=== PATIENT | female | born 1930 | race Caucasian/White ===

== ENCOUNTER → 2016-11-08 | Outpatient (CLI) | payer MEDICARE ==
[~2016-11-08] MED LIST: ASPIRIN325 MG PO; ATENOLOL25 MG PO; ATENOLOL50 MG PO; CALTRATE 600600 MG PO; LATANOPROST 2.2.5 ML OP; MOTRIN600 MG PO; OCUVITE1 TA1 PO; PRAVASTATIN SOD20 MG PO; VITAMIN D1000 IU; XALATAN 2.5 ML2.5 ML OP
[2016-11-08 08:45] LABS: BASO % 0.5 % (0.0-1.0); EOS # 0.2 10*3/uL (0.0-0.4); EOS % 3.1 % (1.0-4.0); HEMATOCRIT 37.3 % (37.0-47.0); HEMOGLOBIN 11.7 g/dl (12.0-16.0); IG # 0.1 10*3/uL (0.0-0.1); LYMPH # 1.6 10*3/uL (1.3-4.4); LYMPH % 27.7 % (27.0-41.0); MEAN CELL VOLUME 90.8 fl (81.0-99.0); MEAN CORPUSCULAR HGB 28.5 pg (27.0-31.0); MEAN CORPUSCULAR HGB CONC 31.4 g/dl (33.0-37.0); MEAN PLATELET VOLUME 10.9 fl (9.6-12.3); MONO # 0.4 10*3/uL (0.1-1.0); MONO % 7.1 % (3.0-9.0); NEUT # 3.6 10*3/uL (2.3-7.9); NEUT % 60.8 % (47.0-73.0); PLATELET COUNT AUTOMATED 173 10*3/uL (130-400); RED BLOOD COUNT 4.11 10*6/uL (4.10-5.10); RED CELL DISTRI WIDTH 15.3 % (0-14.5); WHITE BLOOD COUNT 5.9 10*3/uL (4.8-10.8)
[2016-11-08 09:21] LABS: ALBUMIN 3.1 gm/dl (3.1-4.5); ALKALINE PHOSPHATASE 78 U/L (45-117); BILIRUBIN, TOTAL 0.7 mg/dl (0.2-1.0); BUN 17 mg/dl (7-24); CARBON DIOXIDE 26 mmol/L (21-32); CHLORIDE 111 mmol/L (98-107); CHOLESTEROL 153 mg/dL (<200); EST GLOM FILT AFRICAN AMERICAN > 60 ml/min; GLUCOSE 96 mg/dL (65-99); HDL CHOLESTEROL 39 mg/dl (40-60); LDL CHOLESTEROL 92 mg/dL (9-159); POTASSIUM 3.8 mmol/L (3.5-5.1); SGOT/AST 16 IU/L (3-35); SGPT/ALT 14 U/L (12-78); SODIUM 146 mmol/L (136-145); TRIGLYCERIDES 109 mg/dl (<150); VLDL CHOLESTEROL 22 mg/dL (6-40)
== END | disposition home or self-care (01) ==
LOC: LAB 08:19
PROVIDERS: Internal Medicine
DX: I10 Essential (primary) hypertension (principal); E78.00 Pure hypercholesterolemia, unspecified

== ENCOUNTER 2017-03-23 14:46 | Inpatient (IN) | payer MEDICARE ==
[~2017-03-23] VITALS: Ht 157.4 cm; Wt 60.4 kg
[~2017-03-23 14:46] MED LIST changes: -XALATAN 2.5 ML2.5 ML OP; +XALATAN 2.5 ML2.5 ML OU
[2017-03-23 14:57] VITALS: BP 169/59
[2017-03-23 15:18] LABS: BASO % 0.3 % (0.0-1.0); EOS # 0.1 10*3/uL (0.0-0.4); EOS % 0.7 % (1.0-4.0); HEMATOCRIT 36.7 % (37.0-47.0); HEMOGLOBIN 11.8 g/dl (12.0-16.0); LYMPH # 1.4 10*3/uL (1.3-4.4); LYMPH % 10.3 % (27.0-41.0); MEAN CORPUSCULAR HGB 28.3 pg (27.0-31.0); MEAN CORPUSCULAR HGB CONC 32.2 g/dl (33.0-37.0); MEAN PLATELET VOLUME 11.4 fl (9.6-12.3); MONO # 0.5 10*3/uL (0.1-1.0); MONO % 3.9 % (3.0-9.0); NEUT # 11.4 10*3/uL (2.3-7.9); NEUT % 83.2 % (47.0-73.0); PLATELET COUNT AUTOMATED 146 10*3/uL (130-400); RED BLOOD COUNT 4.17 10*6/uL (4.10-5.10); RED CELL DISTRI WIDTH 14.9 % (0-14.5); WHITE BLOOD COUNT 13.7 10*3/uL (4.8-10.8)
[2017-03-23 15:30] LABS: BUN 21 mg/dl (7-24); CHLORIDE 108 mmol/L (98-107); CREATININE 0.87 mg/dL (0.55-1.02); POTASSIUM 4.3 mmol/L (3.5-5.1); SODIUM 139 mmol/L (136-145)
[2017-03-23 15:50] LABS: ACT PARTIAL THROMBO TIME 25.6 SECONDS (20.8-31.5); INTERNATIONAL NORM RATIO 1.1 (2.0-3.5)
[2017-03-23 17:39] VITALS: BP 158/44
[2017-03-23 18:00] VITALS: BP 158/44
[2017-03-23] MEDS ORDERED: NORVASC5 MG PO (19:37)
[2017-03-23] MEDS ORDERED: ELIQUIS5 M1 PO (19:37)
[2017-03-23] MEDS ORDERED: PRESERVISION A1 EAC2 PO (19:39)
[2017-03-23] MEDS ORDERED: ADVIL200 M1 PO (19:40)
[2017-03-23] MEDS ORDERED: TYLENOL EXTRA500 M2 PO (19:41)
[2017-03-23 20:00] VITALS: BP 141/57
[2017-03-23] MEDS ORDERED: TENORMIN50 MG PO (20:04)
[2017-03-23 23:29] LABS: BILIRUBIN NEGATIVE (NEGATIVE); BLOOD TRACE-INTACT (NEGATIVE); CLARITY SL CLOUDY (CLEAR); COLOR YELLOW (YELLOW); GLUCOSE NEGATIVE (NEGATIVE); KETONE TRACE (NEGATIVE); LEUKO ESTERASE 3+ (NEGATIVE); NITRITE POSITIVE (NEGATIVE); PH 6.5 (5.0-9.0); SPECIFIC GRAVITY 1.015 (1.005-1.030); UROBILINOGEN 0.2 E.U./dl (0.2-1.0)
[2017-03-23 23:35] LABS: BACTERIA 3+
[2017-03-23 23:39] LABS: WBC TNTC wbc/hpf (0-5)
[2017-03-24] VITALS: BP 138/51
[2017-03-24 05:40] LABS: BUN 23 mg/dl (7-24); CHLORIDE 108 mmol/L (98-107); CREATININE 0.81 mg/dL (0.55-1.02); SODIUM 140 mmol/L (136-145)
[2017-03-24 05:45] LABS: THYROID STIM HORMONE (HS) 0.912 uIU/ml (0.358-4.75)
[2017-03-24 05:56] LABS: BASO % 0.5 % (0.0-1.0); EOS % 0.5 % (1.0-4.0); HEMATOCRIT 31.3 % (37.0-47.0); HEMOGLOBIN 10.2 g/dl (12.0-16.0); LYMPH # 1.2 10*3/uL (1.3-4.4); LYMPH % 18.1 % (27.0-41.0); MEAN CELL VOLUME 88.4 fl (81.0-99.0); MEAN CORPUSCULAR HGB 28.8 pg (27.0-31.0); MEAN CORPUSCULAR HGB CONC 32.6 g/dl (33.0-37.0); MEAN PLATELET VOLUME 12.5 fl (9.6-12.3); MONO # 0.4 10*3/uL (0.1-1.0); MONO % 6.6 % (3.0-9.0); NEUT # 4.7 10*3/uL (2.3-7.9); NEUT % 73.5 % (47.0-73.0); PLATELET COUNT AUTOMATED 131 10*3/uL (130-400); RED BLOOD COUNT 3.54 10*6/uL (4.10-5.10); WHITE BLOOD COUNT 6.4 10*3/uL (4.8-10.8)
[2017-03-24 07:50] VITALS: BP 160/78
[2017-03-24 09:02] LABS: VITAMIN D, 25-HYDROXY 36.6 ng/mL (30-100)
[2017-03-24 12:00] VITALS: BP 150/53
[2017-03-24 16:00] VITALS: BP 138/50
[2017-03-24 20:00] VITALS: BP 158/61
[2017-03-25] VITALS: BP 108/68
[2017-03-25 08:00] VITALS: BP 140/54
[2017-03-25 12:00] VITALS: BP 120/78
[2017-03-25 16:00] VITALS: BP 137/50
[2017-03-25 20:00] VITALS: BP 118/60
[2017-03-26] VITALS: BP 116/58
[2017-03-26 08:00] VITALS: BP 134/48
[2017-03-26] MEDS ORDERED: DOXYCYCLINE100 M3 PO (08:59)
== END 2017-03-26 11:55 | disposition other institution (70) | DRG 552 ==
LOC: ED 14:46 → EDHOLD 16:04 → 4E 16:04
PROVIDERS: Emergency Medicine; Internal Medicine; ADMIT Internal Medicine
DX: S32.10XA Unspecified fracture of sacrum, initial encounter for closed fracture (principal); S32.502A Unspecified fracture of left pubis, initial encounter for closed fracture; E87.8 Other disorders of electrolyte and fluid balance, not elsewhere classified; I48.91 Unspecified atrial fibrillation; S32.302A Unspecified fracture of left ilium, initial encounter for closed fracture; N39.0 Urinary tract infection, site not specified; D64.9 Anemia, unspecified; E78.5 Hyperlipidemia, unspecified; H40.9 Unspecified glaucoma; I10 Essential (primary) hypertension; R73.9 Hyperglycemia, unspecified; Z60.2 Problems related to living alone; Z88.2 Allergy status to sulfonamides; Z86.73 Personal history of transient ischemic attack (TIA), and cerebral infarction without residual deficits; Z98.41 Cataract extraction status, right eye; Z82.49 Family history of ischemic heart disease and other diseases of the circulatory system; Z84.89 Family history of other specified conditions; Z79.899 Other long term (current) drug therapy; W01.0XXA Fall on same level from slipping, tripping and stumbling without subsequent striking against object, initial encounter; Y93.89 Activity, other specified; Y92.090 Kitchen in other non-institutional residence as the place of occurrence of the external cause; Y99.8 Other external cause status

== ENCOUNTER → 2017-04-18 | Outpatient (CLI) | payer MEDICARE ==
[~2017-04-18] MED LIST changes: +ADVIL200 M1 PO; +DOXYCYCLINE100 M3 PO; +ELIQUIS5 M1 PO; +NORVASC5 MG PO; +PRESERVISION A1 EAC2 PO; +TENORMIN50 MG PO; +TYLENOL EXTRA500 M2 PO
== END | disposition home or self-care (01) ==
LOC: ORTHO 02:22
DX: S32.502D Unspecified fracture of left pubis, subsequent encounter for fracture with routine healing (principal); X58.XXXD Exposure to other specified factors, subsequent encounter

== ENCOUNTER → 2017-08-12 | Outpatient (CLI) | payer MEDICARE | END | disposition home or self-care (01) | LOC: RAD 09:35 | DX: J90 Pleural effusion, not elsewhere classified (principal); I51.7 Cardiomegaly; M40.294 Other kyphosis, thoracic region; I10 Essential (primary) hypertension ==

== ENCOUNTER → 2017-08-16 | Outpatient (CLI) | payer MEDICARE | END | disposition home or self-care (01) | LOC: CARD 08-12 09:34 | DX: I35.0 Nonrheumatic aortic (valve) stenosis (principal) ==

== ENCOUNTER → 2017-08-24 | Outpatient (CLI) | payer MEDICARE | END | disposition home or self-care (01) | LOC: RAD 11:01 | DX: R06.09 Other forms of dyspnea (principal) ==

== ENCOUNTER 2019-01-31 09:57 | Inpatient (IN) | payer MEDICARE ==
[~2019-01-31] VITALS: Ht 157.5 cm; Wt 61.4 kg
[2019-01-31] VITALS (20 sets, daily range): BP systolic 120–182; BP diastolic 59–108
[~2019-01-31 09:57] MED LIST changes: +AMINOPHYLLIN200 MG PO; +DILTIAZEM HCL60 MG PO; +ELIQUIS2.5 M1 PO; +LISINOPRIL2.5 MG PO; +METOPROLOL SUCC50 M1 PO
[2019-01-31 11:56] LABS: BASO % 0.5 % (0.0-1.0); HEMATOCRIT 35.9 % (37.0-47.0); HEMOGLOBIN 10.7 g/dl (12.0-16.0); LYMPH # 0.8 10*3/uL (1.3-4.4); LYMPH % 12.6 % (27.0-41.0); MEAN CELL VOLUME 91.8 fl (81.0-99.0); MEAN CORPUSCULAR HGB 27.4 pg (27.0-31.0); MEAN CORPUSCULAR HGB CONC 29.8 g/dl (33.0-37.0); MEAN PLATELET VOLUME 12.1 fl (9.6-12.3); MONO # 0.4 10*3/uL (0.1-1.0); MONO % 6.4 % (3.0-9.0); NEUT # 4.8 10*3/uL (2.3-7.9); NEUT % 79.3 % (47.0-73.0); PLATELET COUNT AUTOMATED 170 10*3/uL (130-400); RED BLOOD COUNT 3.91 10*6/uL (4.10-5.10); RED CELL DISTRI WIDTH 17.7 % (0-14.5); WHITE BLOOD COUNT 6.1 10*3/uL (4.8-10.8)
[2019-01-31 12:13] LABS: ALBUMIN 3.5 gm/dl (3.1-4.5); BUN 20 mg/dl (7-24); CHLORIDE 108 mmol/L (98-107); CREATININE 0.93 mg/dL (0.55-1.02); POTASSIUM 3.4 mmol/L (3.5-5.1); SGOT/AST 42 IU/L (3-35); SGPT/ALT 26 U/L (12-78); SODIUM 138 mmol/L (136-145); TOTAL PROTEIN 7.8 gm/dL (6.4-8.2)
[2019-01-31 12:14] LABS: ALKALINE PHOSPHATASE 75 U/L (45-117)
--- NOTE | 2019-01-31 13:07 | NUR ---
CARDIZEM DRIP INCREASED TO 10MG/HR. PT PLACED ON BEDPAN FOR URINE SPECIMAN.
--- NOTE | 2019-01-31 13:20 | NUR ---
PT TAKEN OFF BEDPAN, SHEETS AND NEW GOWN PLACED ON PATIENT. URINE SPECIMAN SENT. PT VOICES NO COMPLAINTS.
[2019-01-31 13:32] LABS: BILIRUBIN 1+ (NEGATIVE); BLOOD TRACE-LYSED (NEGATIVE); CLARITY SL CLOUDY (CLEAR); COLOR YELLOW (YELLOW); GLUCOSE NEGATIVE (NEGATIVE); KETONE 1+ (NEGATIVE); LEUKO ESTERASE NEGATIVE (NEGATIVE); NITRITE NEGATIVE (NEGATIVE); PH 6.5 (5.0-9.0)
[2019-01-31 13:49] LABS: BACTERIA 1+; EPITHELIAL CELLS 21-30
[2019-01-31 13:50] LABS: RBC 0-2 rbc/hpf (0-2)
--- NOTE | 2019-01-31 14:14 | NUR ---
CARDIZEM INCREASED TO 15ML/HR.
--- NOTE | 2019-01-31 14:50 | NUR ---
DR HOOVER AWARE OF PT'S HEART RATE AND STATES TO LEAVE CARDIZEM AT 15MG/HR.
--- NOTE | 2019-01-31 15:45 | NUR ---
PT WITH LACTIC @ 3.0. DR HOOVER AWARE.
--- NOTE | 2019-01-31 16:08 | NUR ---
A 88, admitted to 4E, under the services of DON Ayala DO with a diagnosis of AFIB RVR,PNA,SEPSIS. Chief complaint is AFIB RVR.. Patient arrived via bed from ER. Monitor applied. Initial assessment completed. Vital signs taken and recorded. DON AYALA DO notified of admission to the unit. Orders received. See assessment for past medical history, medications and allergies. Patient oriented to unit. Clothing/patient valuable form completed. YOLANDA MORENO
[2019-01-31 16:44] LABS: CREATININE 0.85 mg/dL (0.55-1.02)
--- NOTE | 2019-01-31 16:45 | NUR ---
PT. WAS INSTRUCTED ON I/S. ATTEMPTED THREE TIME WITH PT. PT. IS UNABLE TO DO I/S. RN NOTIFIED.
--- NOTE | 2019-01-31 16:46 | NUR ---
INFORMED THAT HOME MEDICATIONS ARE VERIFIED.
--- NOTE | 2019-01-31 16:53 | NUR ---
INFORMED OF TROP LEVEL OF 0.083. STATED OK.
--- NOTE | 2019-01-31 17:08 | NUR ---
HOME MEDICATIONS ARE LOCATED IN PHARMACY.
--- NOTE | 2019-01-31 17:19 | NUR ---
PLATFORM MAN. ANSWERING SERVICE NOTIFIED AT THIS TIME REGARDING CONSULT.
--- NOTE | 2019-01-31 17:23 | NUR ---
NOTIFIED REGARDING CRITICAL LACTIC ACID. NO NEW ORDERS AT THIS TIME.
--- NOTE | 2019-01-31 20:09 | NUR ---
INFORMED OF CH LA=2.4 AND CH TROP=0.088. STATED OK.
--- NOTE | 2019-01-31 22:35 | NUR ---
MADE AWARE OF H TROP LEVEL OF 0.076. STATED OK
[2019-02-01] VITALS (9 sets, daily range): BP systolic 119–148; BP diastolic 55–86
--- NOTE | 2019-02-01 01:00 | NUR ---
PT ASLEEP AT THIS TIME. CARDIZEM DRIP RUNNING INTO LEFT HAND IV WITHOUT DIFFICULTY. NO CONCERNS NOTED. RESPIRATIONS EASY. CALL LIGHT IN REACH.
--- NOTE | 2019-02-01 02:00 | NUR ---
CARDIZEM DRIP DECREASED TO 10ML PER HOUR. VERIFIED WITH DELMY CEJA.
--- NOTE | 2019-02-01 03:00 | NUR ---
PT ASLEEP AT THIS TIME. RESPIRATIONS EASY. CALL LIGHT IN REACH.
--- NOTE | 2019-02-01 04:00 | NUR ---
PT HR 60'S PER CM. CARDIZEM DRIP LOWERED TO 5 ML AN HOUR. VERIFIED WITH DELMY CEJA.
--- NOTE | 2019-02-01 05:09 | NUR ---
DR. CARCAMO NOTIFIED OF HR IN 90'S LOW 100'S. INRSTRUCTED TO LEAVE CARDIZEM DRIP AT 5ML/HR AND WAIT AN HOUR AN ASSESS EFFECTIVENESS OF PO LOPRESSOR AND CARDIZEM. WILL CALL BACK WITH RESULTS IN ONE HOUR.
[2019-02-01 06:53] LABS: BASO % 0.5 % (0.0-1.0); EOS % 0.2 % (1.0-4.0); HEMATOCRIT 30.7 % (37.0-47.0); HEMOGLOBIN 9.2 g/dl (12.0-16.0); LYMPH # 0.9 10*3/uL (1.3-4.4); LYMPH % 14.5 % (27.0-41.0); MEAN CELL VOLUME 90.6 fl (81.0-99.0); MEAN CORPUSCULAR HGB 27.1 pg (27.0-31.0); MEAN PLATELET VOLUME 11.8 fl (9.6-12.3); MONO # 0.4 10*3/uL (0.1-1.0); MONO % 6.9 % (3.0-9.0); NEUT # 4.5 10*3/uL (2.3-7.9); NEUT % 76.7 % (47.0-73.0); PLATELET COUNT AUTOMATED 159 10*3/uL (130-400); RED BLOOD COUNT 3.39 10*6/uL (4.10-5.10); RED CELL DISTRI WIDTH 17.7 % (0-14.5); WHITE BLOOD COUNT 5.9 10*3/uL (4.8-10.8)
[2019-02-01 07:08] LABS: ALBUMIN 2.9 gm/dl (3.1-4.5); BUN 26 mg/dl (7-24); CHLORIDE 112 mmol/L (98-107); CREATININE 0.92 mg/dL (0.55-1.02); PHOSPHOROUS 2.7 mg/dL (2.5-4.9); POTASSIUM 3.4 mmol/L (3.5-5.1); SGOT/AST 38 IU/L (3-35); SGPT/ALT 25 U/L (12-78); SODIUM 141 mmol/L (136-145); TOTAL PROTEIN 6.5 gm/dL (6.4-8.2)
[2019-02-01 07:10] LABS: ALKALINE PHOSPHATASE 60 U/L (45-117)
[2019-02-01 07:23] LABS: INTERNATIONAL NORM RATIO 1.3 (2.0-3.5)
--- NOTE | 2019-02-01 08:46 | NUR ---
CARDIZEM GTT DISCONTINUED AT THIS TIME PER ORDER.
--- NOTE | 2019-02-01 09:19 | NUR ---
IV DIG GIVEN SLOWLY PER ORDER. HR 112. WILL CONTINUE TO MONITOR HR. VSS.
--- NOTE | 2019-02-01 09:31 | NUR ---
LULA REEVES CALLED AT THIS TIME REGARDING PALLIATIVE CARE CONSULT.
--- NOTE | 2019-02-01 10:27 | NUR ---
PATIENT REMAINS A-FIB. HR 80-90'S. WILL CONTINUE TO MONITOR.
--- NOTE | 2019-02-01 11:00 | NUR ---
PHYSICAL THERAPY Physical therapy evaluation completed. Full details and evaluation to follow. Low complexity skilled PT evaluation performed ([id number]). PT will work on strength, transfers, gait, bed mobility, and safety per POC. Recommend SNF upon discharge. Thank you, Debbi Johnson,SPT Terri Swann,PT,DPT
--- NOTE | 2019-02-01 11:42 | NUR ---
NOTIFIED REGARDING HR DIPPING INTO THE 50'S. PATIENT STILL IN A-FIB. PT ASYMPTOMATIC. BP STABLE. WILL CONTINUE TO MONITOR HR. CALL LIGHT WITHIN REACH.
--- NOTE | 2019-02-01 11:46 | NUR ---
TANNER CALLED AT THIS TIME REGARDING 'S CONSULT.
--- NOTE | 2019-02-01 12:36 | NUR ---
SPEECH PATHOLOGY Nursing screen completed. There are no reports of acute communication or swallowing problems. Speech services do not appear warranted however this dept. will be available should future needs arise. JONI THOMAS MSCCC-PROCESS PROJECT ENGINEER
--- NOTE | 2019-02-01 13:30 | NUR ---
Lianna was evaluated by occupational therapy this date. She has a history of recent frequent falls and inability to care for herself at home. Patient requries increased assist with ADL's and functional transfers secondary to decreased balance, decreased endurance, and decreased strength. Continued occuaptional therapy is recommended in a SNF when patient is discharged. Candi Gambino
--- NOTE | 2019-02-01 14:07 | NUR ---
SPOKE WITH REGARDING HR DIPPING INTO THE 40'S BUT STAYING IN THE 50'S CURRENTLY. PT ASYMPTOMATIC. SCHEDULED IV DIGOXIN TO BE HELD PER . WILL CONTINUE TO MONITOR. BP STABLE.
--- NOTE | 2019-02-01 15:07 | NUR ---
case management visits with patient to discuss a discharge plan, patient was very confused at this time, will contact patient's family regarding discharge plans
--- NOTE | 2019-02-01 15:09 | NUR ---
PHYSICAL THERAPY Physical therapy referral received and skilled PT evaluation completed 02/01/19. Thank you, Debbi Johnson, SPT Terri Swann,PT,DPT
--- NOTE | 2019-02-01 16:30 | NUR ---
PT MEDICATED WITH PO NORCO PER PRN ORDER FOR C/O BACK PAIN. UNABLE TO RATE PAIN ON A 1/10 SCALE. BILATERAL HEEL PROTECTORS APPLIED. FAMILY MEMBER AT BEDSIDE. WILL MONITOR EFFECTIVENESS.
--- NOTE | 2019-02-01 17:54 | NUR ---
NORCO EFFECTIVE PER PT. WILL CONTINUE TO MONITOR.
--- NOTE | 2019-02-01 20:30 | NUR ---
PATIENT IS RESTING IN BED, NO DISTRESS NOTED, RESP ARE ERND ON ROOM AIR. PATIENT STATES NO COMPLAINTS. CALL LIGHT WITHIN REACH
[2019-02-02] VITALS: BP 142/77
[2019-02-02 08:00] VITALS: BP 157/62
--- NOTE | 2019-02-02 08:35 | NUR ---
Spoke with patients nephew Pascual Paola. He states patient lives alone and does fairly well. She has a walker, has never used oxygen, and she makes her own decisions. He stated if patient "agrees" to go to snf for rehab they would prefer [facility].
--- NOTE | 2019-02-02 09:00 | NUR ---
case management visits with patient, she was sitting in bed eating breakfast, she was alert and oriented this am, discussed with her a discharge plan including a short term jail for rehab prior to returning home, she declined this, stated she would be returning home, also discussed with her VNA and she was receptive to this, given choice of companies she chose [facility], will send an order to [facility] for when patient is medically stable for discharge, case management will follow
--- NOTE | 2019-02-02 11:00 | NUR ---
SPOKE WITH PATIENT'S NEPHEW ON THE PHONE. PERMISSION RECIEVED FROM PATIENT TO RELEASE INFORMATION TO NEPHEW.
[2019-02-02 12:00] VITALS: BP 133/61
--- NOTE | 2019-02-02 12:00 | NUR ---
SPOKE WITH PATIENT AND FAMILY MEMBER AT BEDSIDE ABOUT PLAN OF CARE. PATIENT INFORMED THAT FORENSICS TEAM DIRECTOR ARE CONSULTED FOR SNF PLACEMENT. PATIENT VOICES CONCERNS AND STATES SHE DOES NOT WANT TO GO TO A SNF. EDUCATION PROVIDED ABOUT PHYSICAL THERAPY AND SNF.
--- NOTE | 2019-02-02 13:40 | NUR ---
PHYSICAL THERAPY Patient seen this pm 1;1 for therapy visit and was resting supine in bed upon therapist arrival. Patient identified by name / and was very pleasant this afternoon. Patient transfers supine to sit EOB with MIN A x 1, taking a minute or so to collect herself. Patient performed sit to stand transfer, MIN A and ambulated with use of wh walker, CGA/MIN, demonstrating slow franny, decreased stride and increased fatigue to bathroom, 20'x 2. Patient needed v/c to improve walker safety / navigation and returned to supine in bed with call light, tray table, telephone and bed alarm. Will continue per POC as tolerated, total treatment time 17 minutes. Stevenson Frausto, BAR MACHINE OPERATOR
--- NOTE | 2019-02-02 14:00 | NUR ---
OT NOTE Pt was seen this P.M. 1:1 for 15 minute OT session. Upon arrival pt was supine in bed. Pt identified by name and and had complaints of "mild low back pain." Pt transferred supine to sit EOB with Daniel for assist with UB. Sit to stand completed from bed level with Daniel and use of w/w for UE support. Functional mobility was completed into the bathroom with CGA and use of w/w with occasional verbal prompts for correcting walker safety. Pt transferred on/off standard commode with Daniel due to low surface. Clothing management completed with Daniel and toilet hygiene completed with SBA while seated. Functional mobility completed back to the EOB where she transferred sit to supine with Daniel. There she was left with call light in hand, tray table in place, and bed alarm activated for safety. Continue with rec D/C plan to SNF. WINTER Weir/Gomez
[2019-02-02 16:00] VITALS: BP 171/63
[2019-02-02] MEDS ORDERED: DIGOXIN125 MCG PO (17:46)
[2019-02-02] MEDS ORDERED: ALDACTONE25 MG PO (17:46)
[2019-02-02] MEDS ORDERED: LISINOPRIL5 MG PO (17:46)
[2019-02-02] MEDS ORDERED: VIBRAMYCIN100 MG PO (17:46)
[2019-02-02] MEDS ORDERED: METOPROLOL SUC100 M1 PO (17:46)
[2019-02-02] MEDS ORDERED: NORCO 5-325 TA1 EACH PO (17:47)
--- NOTE | 2019-02-02 21:26 | NUR ---
NORCO GIVEN FOR C/O LOWER BACK PAIN RATED 7/10. CALL LIGHT IN REACH. TOLERATED ROUTINE MEDS WELL WHOLE IN APPLESAUCE.
--- NOTE | 2019-02-02 22:08 | NUR ---
SLEEPING. NO SXS OF DISTRESS. CALL LIGHT IN REACH. BED ALARM ON. NORCO EFFECTIVE.
[2019-02-03] VITALS: BP 150/57
--- NOTE | 2019-02-03 06:04 | NUR ---
TOLERATED ROUTINE MEDS AND PRN NORCO WELL, WHOLE IN APPLESAUCE. C/O BACK PAIN RATED 9/10. CALL LIGHT IN REACH. WILL CONTINUE TO MONITOR. BED ALARM ON.
[2019-02-03 06:18] LABS: BASO % 0.7 % (0.0-1.0); EOS # 0.1 10*3/uL (0.0-0.4); EOS % 1.1 % (1.0-4.0); HEMATOCRIT 34.9 % (37.0-47.0); HEMOGLOBIN 10.6 g/dl (12.0-16.0); LYMPH # 0.7 10*3/uL (1.3-4.4); LYMPH % 15.3 % (27.0-41.0); MEAN CELL VOLUME 89.9 fl (81.0-99.0); MEAN CORPUSCULAR HGB 27.3 pg (27.0-31.0); MEAN CORPUSCULAR HGB CONC 30.4 g/dl (33.0-37.0); MEAN PLATELET VOLUME 11.8 fl (9.6-12.3); MONO # 0.4 10*3/uL (0.1-1.0); MONO % 8.1 % (3.0-9.0); NEUT # 3.3 10*3/uL (2.3-7.9); NEUT % 73.7 % (47.0-73.0); PLATELET COUNT AUTOMATED 205 10*3/uL (130-400); RED BLOOD COUNT 3.88 10*6/uL (4.10-5.10); WHITE BLOOD COUNT 4.5 10*3/uL (4.8-10.8)
[2019-02-03 06:34] LABS: BUN 20 mg/dl (7-24); CHLORIDE 111 mmol/L (98-107); CREATININE 0.83 mg/dL (0.55-1.02); POTASSIUM 3.8 mmol/L (3.5-5.1); SODIUM 140 mmol/L (136-145)
[2019-02-03 08:00] VITALS: BP 163/68
--- NOTE | 2019-02-03 08:00 | NUR ---
BEDSIDE REPORT RECIEVED FROM ROSARIO BROCK. NO S/S OF DISTRESS OR SOB AT THIS TIME. WILL CONTINUE TO MONITOR.
--- NOTE | 2019-02-03 09:30 | NUR ---
IN TO ROOM. PATIENT AWAKE, ALERT AND ORIENTED. VERY PLEASANT AND COOPERATIVE WITH ASSESSMENT. NO STATED COMPLAINTS. NO S/S OF DISTRESS. DENIES PAIN. RESPIRATIONS EASY AND REGULAR. PT SET UP FOR BREAKFAST AND SITUATED IN BED. BED IN LOWEST LOCKED POSITION AND CALL LIGHT WITHIN REACH. WILL COTINUE TO MONITOR.
[2019-02-03 12:00] VITALS: BP 151/55
[2019-02-03 16:00] VITALS: BP 160/68
[2019-02-03 20:00] VITALS: BP 142/73
--- NOTE | 2019-02-03 23:16 | NUR ---
CALLED TO ROOM FRO C/O PAIN TO LOWER BACK. BEL ALTON GIVN FOR BACK PAIN RATED 8/10 ACHING AND DULL. CALL LIGHT IN REACH. BED ALARM ON. WILL MONITOR.
[2019-02-04] VITALS: BP 119/84
--- NOTE | 2019-02-04 00:16 | NUR ---
SLEEPING, CALL LIGHT WITHIN REACH. BED ALARM ON. BED IN LOWEST POSITION WITH WHEELS LOCKED. NORCO SEEMS TO BE EFFECTIVE FOR EARLIER COMPLAINTS OF BACK PAIN.
[2019-02-04 12:00] VITALS: BP 159/90
--- NOTE | 2019-02-04 15:36 | NUR ---
BEDSIDE REPORT RECIEVED FROM NILSA BROCK. PATIENT AWAKE, ALERT AND ORIENTED SITTING UP IN BED. FAMILY AT BEDSIDE. NO STATED COMPLAINTS. NO S/S OF SOB OR DISTRESS. BED IN LOWEST LOCKED POSITION AND CALL LIGHT WITHIN REACH. WILL CONTINUE TO MONITOR.
[2019-02-04 16:00] VITALS: BP 153/80
--- NOTE | 2019-02-04 19:53 | NUR ---
PT REQUESTED AND RECIEVED PRN TYLENOL FOR BACK PAIN. WILL MONITOR FOR EFFECTIVENESS.
[2019-02-04 20:00] VITALS: BP 118/59
[2019-02-05] VITALS: BP 161/69
--- NOTE | 2019-02-05 07:00 | NUR ---
ARRIVED ON SHIFT, INTRODUCED TO PATIENT, BEDSIDE REPORT RECEIVED, WHITE BOARD UPDATED, NO NEEDS VOICED ST THIS TIME.
[2019-02-05 07:18] LABS: BASO % 0.5 % (0.0-1.0); EOS # 0.1 10*3/uL (0.0-0.4); HEMOGLOBIN 10.8 g/dl (12.0-16.0); LYMPH # 0.9 10*3/uL (1.3-4.4); MEAN CELL VOLUME 87.7 fl (81.0-99.0); MEAN CORPUSCULAR HGB 27.1 pg (27.0-31.0); MEAN CORPUSCULAR HGB CONC 30.9 g/dl (33.0-37.0); MEAN PLATELET VOLUME 11.9 fl (9.6-12.3); MONO # 0.5 10*3/uL (0.1-1.0); NEUT # 2.5 10*3/uL (2.3-7.9); NEUT % 62.5 % (47.0-73.0); PLATELET COUNT AUTOMATED 209 10*3/uL (130-400); RED BLOOD COUNT 3.99 10*6/uL (4.10-5.10); RED CELL DISTRI WIDTH 17.5 % (0-14.5)
[2019-02-05 07:25] LABS: BUN 13 mg/dl (7-24); CHLORIDE 112 mmol/L (98-107); CREATININE 0.78 mg/dL (0.55-1.02); POTASSIUM 3.5 mmol/L (3.5-5.1); SODIUM 140 mmol/L (136-145)
--- NOTE | 2019-02-05 07:42 | NUR ---
Shift chart check completed.
[2019-02-05 08:00] VITALS: BP 161/72; BP 162/80
--- NOTE | 2019-02-05 08:23 | NUR ---
PATIENT C/O BACK PAIN 07/16 MEDICATED WITH TYLENOL ORDERED PRN.
--- NOTE | 2019-02-05 08:34 | NUR ---
OT NOTE Pt was seen this A.M. 1:1 for 20 minute OT session. Upon arrival pt was supine in bed. Pt identified by name and and had complaints of low back pain which she did not rate on 0-10 pain scale. Pt transferred supine to sit EOB with modA for assist with UB. While sitting EOB pt donned socks with Daniel. Sit to stand completed from bed level with Daniel and use of w/w for UE support. Functional mobility completed into the bathroom with CGA and use of w/w. There she transferred on/off standard commode with Daniel and use of grab bar for UE support. Clothing management completed with Daniel and toilet hygiene completed with CGA for safety while standing. Pt then stood sink side while washing her hands with CGA for safety and verbal prompts for walker safety due to walking away without it. Functional mobility then completed back to the EOB where she transferred sit to supine with Daniel for assist with BLE. There she was left with call light in hand, tray table in place, and bed alarm activated for safety. Continue with rec D/C plan to SNF. WINTER Weir/Gomez
--- NOTE | 2019-02-05 08:40 | NUR ---
PHYSICAL THERAPY PT SUPINE IN BED WITH BED ALARM ON UPON ARRIVAL. PT IDENTIFIED BY NAME AND . PT AGREEED TO ALL PT TREATMENT THIS A.M. PT PERFORMED SUPINE TO SITTING EOB WITH MODa X1 AND VC'S TO USE BED RAIL. PT PERFORMED SIT TO STAND FROM EOB TO FWW WITH Verónica X1 AND VC'S FOR SAFETY PUSHING OFF BED AND NOT USIGN WALKER TO STAND. PT GAIT TRAINED 15FT X2 WITH FWW AND Verónica X1, SHUFFLED GAT AND SLIGHT FW FLEXED POSTURE. PT PERFORMED STS TO AND FROM TOILET WITH Verónica AND USE ON ONE HAND RAIL. PT PERFORMED STS TO EOB WITH VC'S FOR SAFETY AND CGA. PT PERFORMESD SIT TO SUPINE WITH MODa X1 WITH VC'S FOR SAFETY. PT REQUIRED MAXa X2 FOR BED MOBILITY TO MOVE HEAD OF BED. PT SUPINE IN BED WITH CALL LIGHT SITTING ON PTS CHEST AND BED ALARM ON. PT REPORTED NO OTHER NEEDS AT TIME TIME. PT SEEN 1:1 FOR 16MIN THIS AM. RAMÓN BREWER PTA
--- NOTE | 2019-02-05 09:30 | NUR ---
PATIENT REPORTS GOOD RELIEF FROM TYLENOL GIVEN X 1 HOUR AGO.
[2019-02-05 12:00] VITALS: BP 147/70
--- NOTE | 2019-02-05 12:11 | NUR ---
Patient requesting a referral to [facility]. Contacted facility and faxed referral. Patient has met her 3 night stay. Waiting on review/acceptance.
--- NOTE | 2019-02-05 14:26 | NUR ---
patient has been accepted to [facility] exemption complete, 3 night stay complete. Patient is ok to go when medically stable for discharge.
[2019-02-05 16:00] VITALS: BP 136/71
--- NOTE | 2019-02-05 17:10 | NUR ---
PT STATES SHE WOULD LIKE TO GO TO [facility] ON DISCHARGE. PROCESS CONTROL PROGRAMMER AWARE. WILL CONTINUE TO FOLLOW.
--- NOTE | 2019-02-05 18:46 | NUR ---
MEDICATED FOR BACK PAIN WITH TYLENOL 650MG ORDERED WHITE BOARD UPDATED.
[2019-02-05 20:00] VITALS: BP 152/84
--- NOTE | 2019-02-05 20:40 | NUR ---
PATIENT IS RESTING IN BED WITH EASY AND REGULAR RESPERS ON ROOM AIR. ASSESSMENT IS COMPLETE WITH NO C/O OR S/S OF DISTRESS NOTED AT THIS TIME. BED IS LOW, LOCKED, ALARMED, AND CALL LIGHT IS WITHIN REACH. WILL CONTNINUE TO MONITOR SEE SHIFT ASSESSMENT.
[2019-02-06] VITALS: BP 140/62
--- NOTE | 2019-02-06 04:47 | NUR ---
SPOKE WITH DR. DASH REGARDING PAIN CONTROL. REQUESTED ICY HOT FOR BACK, SEE NEW ORDERS.
--- NOTE | 2019-02-06 05:45 | NUR ---
PRN NORCO GIVEN AT THIS TIME FOR C/O BACK PAIN. CALL LIGHT IS WITHIN REACH, WILL MONITOR EFFECT.
--- NOTE | 2019-02-06 07:00 | NUR ---
PRN NORCO EFFECTIVE PER PATIENT. CALL LIGHT IS WITHIN REACH.
--- NOTE | 2019-02-06 07:27 | NUR ---
Patient accepted to [facility]; 3 night stay complete. patient is ok to go when medically stable for discharge.
[2019-02-06 08:00] VITALS: BP 156/96
[2019-02-06 08:02] VITALS: BP 176/78
[2019-02-06 09:54] VITALS: BP 158/56
[2019-02-06] MEDS ORDERED: LEVAQUIN750 M1 PO (11:15)
--- NOTE | 2019-02-06 11:22 | NUR ---
Patient is discharged to [facility]; Sujey will be picking patient up at 1 pm with their ambulette. Nursing/computer forwarding system markup clerk and patients nephew Pascual all notified.
[2019-02-06 12:00] VITALS: BP 118/70
--- NOTE | 2019-02-06 13:51 | NUR ---
TRANSPORT STAFF FROM [facility] IN TO TAKE PATIENT TO [facility] BY [facility], TO FRONT LOBBY BY WHEELCHAIR TO PLACE IN [place]. REPORT CALLED TO [facility], MESSAGE LEFT WITH CHARTER BUS DRIVER INCLUDING CONTACT INFORMATION FOR QUESTIONS.
--- NOTE | 2019-02-06 15:13 | NUR ---
PHYSICAL THERAPY CO-SIGN I approve of the Physical Therapy notes written above. IMMANUEL BASILIO PT, DPT
--- NOTE | 2019-02-07 08:29 | NUR ---
OCCUPATIONAL THERAPY CO-SIGN I approve of the Occupational Therapy notes written above. DAMIR ESTRADA OTR/Gomez
== END 2019-02-06 13:51 | disposition other institution (70) | DRG 871 ==
LOC: ED 09:57 → EDHOLD 14:57 → 4E 14:57
PROVIDERS: Hospitalist; Podiatrist Foot & Ankle Surgery; Student in an Organized Health Care Education/Training Program; ADMIT Internal Medicine
DX: A41.9 Sepsis, unspecified organism (principal); J15.6 Pneumonia due to other Gram-negative bacteria; S22.31XA Fracture of one rib, right side, initial encounter for closed fracture; S32.020A Wedge compression fracture of second lumbar vertebra, initial encounter for closed fracture; S32.010A Wedge compression fracture of first lumbar vertebra, initial encounter for closed fracture; E87.2 Acidosis; N39.0 Urinary tract infection, site not specified; I24.8 Other forms of acute ischemic heart disease; I50.22 Chronic systolic (congestive) heart failure; E44.0 Moderate protein-calorie malnutrition; E78.5 Hyperlipidemia, unspecified; R65.20 Severe sepsis without septic shock; E87.6 Hypokalemia; E87.8 Other disorders of electrolyte and fluid balance, not elsewhere classified; R74.0 Nonspecific elevation of levels of transaminase and lactic acid dehydrogenase [LDH]; I11.0 Hypertensive heart disease with heart failure; I08.0 Rheumatic disorders of both mitral and aortic valves; D64.9 Anemia, unspecified; F32.9 Major depressive disorder, single episode, unspecified; R41.9 Unspecified symptoms and signs involving cognitive functions and awareness; Z60.2 Problems related to living alone; I73.9 Peripheral vascular disease, unspecified; W18.39XA Other fall on same level, initial encounter; E83.42 Hypomagnesemia; Z86.73 Personal history of transient ischemic attack (TIA), and cerebral infarction without residual deficits; Z87.440 Personal history of urinary (tract) infections; Z88.2 Allergy status to sulfonamides; Z79.899 Other long term (current) drug therapy; Z90.89 Acquired absence of other organs; Z98.41 Cataract extraction status, right eye; Z82.49 Family history of ischemic heart disease and other diseases of the circulatory system; Z84.89 Family history of other specified conditions; Z87.81 Personal history of (healed) traumatic fracture; Y93.89 Activity, other specified; Y92.89 Other specified places as the place of occurrence of the external cause; Y99.8 Other external cause status; Z68.24 Body mass index [BMI] 24.0-24.9, adult; I48.91 Unspecified atrial fibrillation

== ENCOUNTER → 2019-02-26 | Outpatient (CLI) | payer MEDICARE ==
[~2019-02-26] MED LIST changes: +ALDACTONE25 MG PO; +DIGOXIN125 MCG PO; +LEVAQUIN750 M1 PO; +LISINOPRIL5 MG PO; +METOPROLOL SUC100 M1 PO; +NORCO 5-325 TA1 EACH PO; +VIBRAMYCIN100 MG PO
== END | disposition home or self-care (01) ==
LOC: NM 00:12
DX: K31.84 Gastroparesis (principal); I10 Essential (primary) hypertension

== ENCOUNTER 2019-03-29 15:20 | Inpatient (IN) | payer MEDICARE ==
[~2019-03-29] VITALS: Ht 157.4 cm; Wt 54.1 kg
--- NOTE | ~2019-03-29 | EKG ---
[place], [place] ELECTROCARDIOGRAM REPORT NAME: GALLO NGUYEN UNIT #: [id number] ROOM: 509 DOCTOR: PATRICIA DRAFT REPORT BIRTHDATE: [birth year] [facility] Test Date: 2019-03-29 Test Time: 15:52:39 Pat Name: GALLO NGUYEN Department: Room: 509 Gender: F All Terrain Vehicle Racer: Sarah Cherry : 1930 Requested By: DENISSE HOOVER Order Number: [id number] Reading MD: Kellie Cesar MD Measurements Intervals [place] Rate: 65 P: GA: QRS: -21 QRSD: 91 T: 211 QT: 367 QTc: 382 Interpretive Statements Atrial fibrillation LVH with secondary repolarization abnormality Possible lateral ischemia Compared to ECG 01/31/2019 22:50:33 Early repolarization now present Prolonged QT interval no longer present Electronically Signed On 04-09-2019 7:33:27 PST by Kellie Cesar MD CM:EKGRPT:ELECTROCARDIOGRAM REPORT [id number] DENISSE GOMEZ DRAFT REPORT DENISSE HOOVER M.D.
[2019-03-29 15:23] VITALS: BP 146/58
[2019-03-29 16:02] LABS: BASO % 0.5 % (0.0-1.0); EOS # 0.1 10*3/uL (0.0-0.4); EOS % 0.8 % (1.0-4.0); HEMATOCRIT 42.1 % (37.0-47.0); HEMOGLOBIN 12.7 g/dl (12.0-16.0); LYMPH # 1.2 10*3/uL (1.3-4.4); LYMPH % 19.6 % (27.0-41.0); MEAN CELL VOLUME 90.3 fl (81.0-99.0); MEAN CORPUSCULAR HGB 27.3 pg (27.0-31.0); MEAN CORPUSCULAR HGB CONC 30.2 g/dl (33.0-37.0); MEAN PLATELET VOLUME 10.7 fl (9.6-12.3); MONO # 0.5 10*3/uL (0.1-1.0); MONO % 7.7 % (3.0-9.0); NEUT # 4.2 10*3/uL (2.3-7.9); NEUT % 70.4 % (47.0-73.0); PLATELET COUNT AUTOMATED 172 10*3/uL (130-400); RED BLOOD COUNT 4.66 10*6/uL (4.10-5.10); RED CELL DISTRI WIDTH 19.7 % (0-14.5)
[2019-03-29 16:18] LABS: ALBUMIN 3.1 gm/dl (3.1-4.5); ALKALINE PHOSPHATASE 47 U/L (45-117); BUN 32 mg/dl (7-24); CHLORIDE 115 mmol/L (98-107); POTASSIUM 4.7 mmol/L (3.5-5.1); SGOT/AST 16 IU/L (3-35); SGPT/ALT 15 U/L (12-78); SODIUM 140 mmol/L (136-145); TOTAL PROTEIN 7.1 gm/dL (6.4-8.2)
[2019-03-29 16:20] LABS: TROPONIN I < 0.015 ng/ml (<0.045)
[2019-03-29 18:10] LABS: ACT PARTIAL THROMBO TIME 24.1 SECONDS (20.0-32.1)
[2019-03-29 18:34] VITALS: BP 149/69
[2019-03-29] MEDS ORDERED: LASIX20 MG PO (18:47)
[2019-03-29] MEDS ORDERED: METOCLOPRAMIDE5 MG PO (18:48)
[2019-03-29] MEDS ORDERED: MEGACE40 MG PO (18:49)
[2019-03-29 20:00] VITALS: BP 175/54
[2019-03-29 21:00] VITALS: BP 140/60
[2019-03-30] VITALS: BP 110/71
[2019-03-30 06:51] LABS: BASO % 0.3 % (0.0-1.0); EOS # 0.1 10*3/uL (0.0-0.4); EOS % 1.2 % (1.0-4.0); HEMOGLOBIN 12.2 g/dl (12.0-16.0); LYMPH # 1.4 10*3/uL (1.3-4.4); LYMPH % 22.1 % (27.0-41.0); MEAN CELL VOLUME 87.3 fl (81.0-99.0); MEAN CORPUSCULAR HGB 26.6 pg (27.0-31.0); MEAN CORPUSCULAR HGB CONC 30.5 g/dl (33.0-37.0); MEAN PLATELET VOLUME 11.3 fl (9.6-12.3); MONO # 0.6 10*3/uL (0.1-1.0); MONO % 8.5 % (3.0-9.0); NEUT # 4.3 10*3/uL (2.3-7.9); NEUT % 66.5 % (47.0-73.0); PLATELET COUNT AUTOMATED 177 10*3/uL (130-400); RED BLOOD COUNT 4.58 10*6/uL (4.10-5.10); RED CELL DISTRI WIDTH 19.5 % (0-14.5); WHITE BLOOD COUNT 6.5 10*3/uL (4.8-10.8)
[2019-03-30 07:10] LABS: BUN 30 mg/dl (7-24); CHLORIDE 114 mmol/L (98-107); CREATININE 0.93 mg/dL (0.55-1.02); POTASSIUM 4.6 mmol/L (3.5-5.1); SODIUM 141 mmol/L (136-145)
[2019-03-30 07:13] LABS: CHOLESTEROL 124 mg/dL (<200); HDL CHOLESTEROL 23 mg/dl (40-60); LDL CHOLESTEROL 87 mg/dL (9-159); TRIGLYCERIDES 68 mg/dl (<150); VLDL CHOLESTEROL 14 mg/dL (6-40)
[2019-03-30 08:00] VITALS: BP 122/78
[2019-03-30 12:00] VITALS: BP 151/77
[2019-03-30 16:00] VITALS: BP 99/54
[2019-03-30 20:00] VITALS: BP 118/46
[2019-03-31] VITALS: BP 112/46
[2019-03-31 06:03] LABS: CREATININE 1.2 mg/dL (0.55-1.02); POTASSIUM 4.6 mmol/L (3.5-5.1)
[2019-03-31 06:38] LABS: BASO % 0.3 % (0.0-1.0); EOS # 0.1 10*3/uL (0.0-0.4); EOS % 1.8 % (1.0-4.0); HEMATOCRIT 35.7 % (37.0-47.0); HEMOGLOBIN 11.2 g/dl (12.0-16.0); LYMPH # 1.5 10*3/uL (1.3-4.4); MEAN CELL VOLUME 88.4 fl (81.0-99.0); MEAN CORPUSCULAR HGB 27.7 pg (27.0-31.0); MEAN CORPUSCULAR HGB CONC 31.4 g/dl (33.0-37.0); MEAN PLATELET VOLUME 11.2 fl (9.6-12.3); MONO # 0.6 10*3/uL (0.1-1.0); MONO % 9.2 % (3.0-9.0); NEUT # 3.7 10*3/uL (2.3-7.9); NEUT % 62.2 % (47.0-73.0); PLATELET COUNT AUTOMATED 165 10*3/uL (130-400); RED BLOOD COUNT 4.04 10*6/uL (4.10-5.10); RED CELL DISTRI WIDTH 19.6 % (0-14.5)
[2019-03-31 08:00] VITALS: BP 150/76
[2019-03-31 12:00] VITALS: BP 105/57
[2019-03-31 16:00] VITALS: BP 103/55
[2019-03-31 20:00] VITALS: BP 142/58
[2019-04-01] VITALS: BP 149/67
[2019-04-01 06:25] LABS: CREATININE 1.07 mg/dL (0.55-1.02); POTASSIUM 4.5 mmol/L (3.5-5.1)
[2019-04-01 06:33] LABS: BASO % 0.5 % (0.0-1.0); EOS # 0.1 10*3/uL (0.0-0.4); EOS % 0.9 % (1.0-4.0); HEMATOCRIT 36.7 % (37.0-47.0); HEMOGLOBIN 11.5 g/dl (12.0-16.0); LYMPH # 1.4 10*3/uL (1.3-4.4); LYMPH % 21.5 % (27.0-41.0); MEAN CELL VOLUME 87.2 fl (81.0-99.0); MEAN CORPUSCULAR HGB 27.3 pg (27.0-31.0); MEAN CORPUSCULAR HGB CONC 31.3 g/dl (33.0-37.0); MEAN PLATELET VOLUME 11.2 fl (9.6-12.3); MONO # 0.4 10*3/uL (0.1-1.0); MONO % 6.5 % (3.0-9.0); NEUT # 4.5 10*3/uL (2.3-7.9); NEUT % 69.4 % (47.0-73.0); PLATELET COUNT AUTOMATED 171 10*3/uL (130-400); RED BLOOD COUNT 4.21 10*6/uL (4.10-5.10); RED CELL DISTRI WIDTH 19.5 % (0-14.5); WHITE BLOOD COUNT 6.4 10*3/uL (4.8-10.8)
[2019-04-01 08:00] VITALS: BP 148/80
[2019-04-01 12:00] VITALS: BP 124/53
[2019-04-01 16:00] VITALS: BP 108/52
[2019-04-01 20:00] VITALS: BP 124/46
[2019-04-02] VITALS: BP 127/55
[2019-04-02 06:28] LABS: BASO % 0.6 % (0.0-1.0); EOS # 0.1 10*3/uL (0.0-0.4); EOS % 1.6 % (1.0-4.0); HEMATOCRIT 37.4 % (37.0-47.0); HEMOGLOBIN 11.8 g/dl (12.0-16.0); LYMPH # 1.4 10*3/uL (1.3-4.4); LYMPH % 22.5 % (27.0-41.0); MEAN CELL VOLUME 87.2 fl (81.0-99.0); MEAN CORPUSCULAR HGB 27.5 pg (27.0-31.0); MEAN CORPUSCULAR HGB CONC 31.6 g/dl (33.0-37.0); MEAN PLATELET VOLUME 11.1 fl (9.6-12.3); MONO # 0.4 10*3/uL (0.1-1.0); MONO % 6.7 % (3.0-9.0); NEUT # 4.2 10*3/uL (2.3-7.9); NEUT % 67.2 % (47.0-73.0); PLATELET COUNT AUTOMATED 182 10*3/uL (130-400); RED BLOOD COUNT 4.29 10*6/uL (4.10-5.10); RED CELL DISTRI WIDTH 19.8 % (0-14.5); WHITE BLOOD COUNT 6.3 10*3/uL (4.8-10.8)
[2019-04-02 06:51] LABS: CREATININE 1.19 mg/dL (0.55-1.02); POTASSIUM 4.3 mmol/L (3.5-5.1)
[2019-04-02 08:00] VITALS: BP 148/56
[2019-04-02 12:00] VITALS: BP 117/53
[2019-04-02 16:00] VITALS: BP 147/60
[2019-04-02 20:00] VITALS: BP 128/53
[2019-04-03] VITALS: BP 153/57
[2019-04-03 06:33] LABS: BASO % 0.4 % (0.0-1.0); EOS # 0.1 10*3/uL (0.0-0.4); EOS % 0.9 % (1.0-4.0); HEMATOCRIT 38.6 % (37.0-47.0); HEMOGLOBIN 12.1 g/dl (12.0-16.0); LYMPH # 1.6 10*3/uL (1.3-4.4); LYMPH % 23.7 % (27.0-41.0); MEAN CELL VOLUME 87.7 fl (81.0-99.0); MEAN CORPUSCULAR HGB 27.5 pg (27.0-31.0); MEAN CORPUSCULAR HGB CONC 31.3 g/dl (33.0-37.0); MEAN PLATELET VOLUME 10.4 fl (9.6-12.3); MONO # 0.4 10*3/uL (0.1-1.0); MONO % 6.1 % (3.0-9.0); NEUT # 4.6 10*3/uL (2.3-7.9); NEUT % 67.6 % (47.0-73.0); PLATELET COUNT AUTOMATED 197 10*3/uL (130-400); RED CELL DISTRI WIDTH 19.8 % (0-14.5); WHITE BLOOD COUNT 6.8 10*3/uL (4.8-10.8)
[2019-04-03 06:43] LABS: CREATININE 1.17 mg/dL (0.55-1.02); POTASSIUM 4.1 mmol/L (3.5-5.1)
[2019-04-03 08:00] VITALS: BP 136/50
[2019-04-03] MEDS ORDERED: ASPERCREME76.5 GM T (10:08)
[2019-04-03] MEDS ORDERED: NORCO 5-325 TA1 EACH PO (10:08)
== END 2019-04-03 12:59 | disposition home health service (06) | DRG 377 ==
LOC: ED 15:20 → EDHOLD 17:49 → 5E 17:49
PROVIDERS: Emergency Medicine; Family Medicine; Internal Medicine; ADMIT Internal Medicine
DX: K92.2 Gastrointestinal hemorrhage, unspecified (principal); N17.0 Acute kidney failure with tubular necrosis; E44.0 Moderate protein-calorie malnutrition; I50.22 Chronic systolic (congestive) heart failure; Z66 Do not resuscitate; Z51.5 Encounter for palliative care; I08.0 Rheumatic disorders of both mitral and aortic valves; I11.0 Hypertensive heart disease with heart failure; E78.5 Hyperlipidemia, unspecified; E87.8 Other disorders of electrolyte and fluid balance, not elsewhere classified; I48.91 Unspecified atrial fibrillation; R73.9 Hyperglycemia, unspecified; M25.511 Pain in right shoulder; Z88.2 Allergy status to sulfonamides; Z87.01 Personal history of pneumonia (recurrent); Z86.73 Personal history of transient ischemic attack (TIA), and cerebral infarction without residual deficits; Z98.41 Cataract extraction status, right eye; Z82.49 Family history of ischemic heart disease and other diseases of the circulatory system; Z84.89 Family history of other specified conditions; Z79.899 Other long term (current) drug therapy; Z68.21 Body mass index [BMI] 21.0-21.9, adult

== ENCOUNTER 2019-04-18 16:55 | Inpatient (IN) | payer MEDICARE ==
[~2019-04-18] VITALS: Ht 157.4 cm; Wt 52.2 kg
[~2019-04-18 16:55] MED LIST changes: +ASPERCREME76.5 GM T; +LASIX20 MG PO; +MEGACE40 MG PO; +METOCLOPRAMIDE5 MG PO
[2019-04-18 16:59] VITALS: BP 143/67
[2019-04-18 17:28] LABS: BILIRUBIN NEGATIVE (NEGATIVE); BLOOD NEGATIVE (NEGATIVE); CLARITY CLEAR (CLEAR); COLOR YELLOW (YELLOW); GLUCOSE NEGATIVE (NEGATIVE); KETONE NEGATIVE (NEGATIVE); LEUKO ESTERASE TRACE (NEGATIVE); NITRITE NEGATIVE (NEGATIVE); PH 6.5 (5.0-9.0); UROBILINOGEN 0.2 E.U./dl (0.2-1.0)
[2019-04-18 17:48] LABS: BASO % 0.5 % (0.0-1.0); EOS # 0.1 10*3/uL (0.0-0.4); EOS % 1.1 % (1.0-4.0); HEMATOCRIT 34.6 % (37.0-47.0); LYMPH # 1.4 10*3/uL (1.3-4.4); LYMPH % 23.4 % (27.0-41.0); MEAN CELL VOLUME 87.8 fl (81.0-99.0); MEAN CORPUSCULAR HGB 27.9 pg (27.0-31.0); MEAN CORPUSCULAR HGB CONC 31.8 g/dl (33.0-37.0); MEAN PLATELET VOLUME 10.6 fl (9.6-12.3); MONO # 0.5 10*3/uL (0.1-1.0); MONO % 8.3 % (3.0-9.0); NEUT % 65.7 % (47.0-73.0); PLATELET COUNT AUTOMATED 261 10*3/uL (130-400); RED BLOOD COUNT 3.94 10*6/uL (4.10-5.10); RED CELL DISTRI WIDTH 20.4 % (0-14.5); WHITE BLOOD COUNT 6.2 10*3/uL (4.8-10.8)
[2019-04-18 17:52] LABS: BACTERIA TRACE
[2019-04-18 17:57] LABS: ACT PARTIAL THROMBO TIME 24.5 SECONDS (20.0-32.1)
[2019-04-18 18:03] LABS: ALBUMIN 3.2 gm/dl (3.1-4.5); ALKALINE PHOSPHATASE 79 U/L (45-117); BUN 19 mg/dl (7-24); CHLORIDE 114 mmol/L (98-107); CREATININE 0.97 mg/dL (0.55-1.02); LIPASE 171 U/L (73-393); POTASSIUM 4.3 mmol/L (3.5-5.1); SGOT/AST 20 IU/L (3-35); SGPT/ALT 21 U/L (12-78); SODIUM 141 mmol/L (136-145); TROPONIN I 0.019 ng/ml (<0.045)
--- NOTE | 2019-04-18 18:35 | NUR ---
Time: 1829 A 88 year old FEMALE admitted to 5E under services of YESSENIA JEROME DO. Pt. arrived via BED from ER. Chief complaint: WEAK, UNALBE TO AMBULATE, RECENT UTI. BANDAR LEE
[2019-04-18] MEDS ORDERED: POTASSIUM CHLO20 ME3 PO (18:52)
[2019-04-18 19:10] VITALS: BP 155/78
[2019-04-18 20:00] VITALS: BP 145/90
--- NOTE | 2019-04-18 20:42 | NUR ---
PATIENT HOME MEDICATIONS SENT TO PHARMACY.
[2019-04-19] VITALS: BP 156/66
[2019-04-19 07:04] LABS: BASO % 0.5 % (0.0-1.0); EOS # 0.1 10*3/uL (0.0-0.4); EOS % 1.5 % (1.0-4.0); HEMATOCRIT 36.2 % (37.0-47.0); HEMOGLOBIN 11.3 g/dl (12.0-16.0); LYMPH # 1.3 10*3/uL (1.3-4.4); LYMPH % 19.7 % (27.0-41.0); MEAN CELL VOLUME 87.4 fl (81.0-99.0); MEAN CORPUSCULAR HGB 27.3 pg (27.0-31.0); MEAN CORPUSCULAR HGB CONC 31.2 g/dl (33.0-37.0); MEAN PLATELET VOLUME 10.7 fl (9.6-12.3); MONO # 0.5 10*3/uL (0.1-1.0); MONO % 7.6 % (3.0-9.0); NEUT # 4.6 10*3/uL (2.3-7.9); NEUT % 69.8 % (47.0-73.0); PLATELET COUNT AUTOMATED 248 10*3/uL (130-400); RED BLOOD COUNT 4.14 10*6/uL (4.10-5.10); RED CELL DISTRI WIDTH 20.4 % (0-14.5); WHITE BLOOD COUNT 6.6 10*3/uL (4.8-10.8)
[2019-04-19 07:27] LABS: ALKALINE PHOSPHATASE 76 U/L (45-117); BUN 17 mg/dl (7-24); CHLORIDE 113 mmol/L (98-107); CREATININE 0.92 mg/dL (0.55-1.02); FREE T4 1.18 ng/dl (0.76-1.46); PHOSPHOROUS 2.9 mg/dL (2.5-4.9); POTASSIUM 3.9 mmol/L (3.5-5.1); SGOT/AST 19 IU/L (3-35); SGPT/ALT 20 U/L (12-78); SODIUM 142 mmol/L (136-145); TOTAL PROTEIN 6.8 gm/dL (6.4-8.2)
[2019-04-19 08:00] VITALS: BP 150/68
[2019-04-19 08:22] LABS: VITAMIN D, 25-HYDROXY 33.5 ng/mL (30-100)
--- NOTE | 2019-04-19 10:00 | NUR ---
Occupational Therapy evaluation completed on 5 with full eval to follow. Precautions include fall risk, new ww use,IV UE, impaired cognition,unsteady in standing,moderate complexity level 09801. Recommend OT for safety in functional mobility in ADLs,ADL training per POC and SNF to enable return home alone. Thank you. Cassandra Carroll OTR/L
--- NOTE | 2019-04-19 10:46 | NUR ---
BAND MANAGER was notified of the patient wanting to be referred to [facility]. BAND MANAGER faxed new referral to [facility]. -SUNSHINE Araya
--- NOTE | 2019-04-19 11:27 | NUR ---
PHYSICAL THERAPY Susan completed full report to follow pt moderate complexity level [id number] recomend SNF at discharge. PT to work on transfers,amb,balance,safety and strengthening. Ciara Duke PT
[2019-04-19 12:00] VITALS: BP 132/54
--- NOTE | 2019-04-19 13:44 | NUR ---
BOAT LOADER HELPER faxed PT/OT Evals to [facility]. -SUNSHINE Araya
--- NOTE | 2019-04-19 14:12 | NUR ---
Patient has been accepted at [facility]. Patient will require a 3 night stay. Patient will be able to go to [facility] on Tuesday04/21/2019 if medically stable. -SUNSHINE Araya
--- NOTE | 2019-04-19 14:51 | NUR ---
Telephone Quotation Clerk in to talk to patient. Patient states lives at HOME with ALONE. There are FEW steps in the home. Physician: DALY Pharmacy: [facility] Home health services: ON LICENSE OF [facility] Patient's level of ADLs: MINIMAL ASSIST Patient has working utilities: ES DME: [facility] Follow-up physician's appointment after d/c: PREFERS TO MAKE OWN Does patient want to access PORTAL?: NO Discharge plan PT LIVES AT HOME ALONE WITH ASSIST FROM NEPHEWS. PT HAS AGREED TO GO TO [facility] ON DISCHARGE. REFERRAL HAS BEEN MADE AND SHE HAS BEEN ACCEPTED. WILL CONTINUE TO MONITORED, WILL REQUIRE A 3 NIGHT STAY PRIOR TO DISCHARGE. WILL CONTINUE TO FOLLOW. . SUGEY DEE
[2019-04-19 16:00] VITALS: BP 139/64
[2019-04-19 20:00] VITALS: BP 117/52
[2019-04-20] VITALS: BP 150/79
--- NOTE | 2019-04-20 01:32 | NUR ---
PATIENTS IV LEAKING AT SITE. NEW IV STARTED IN LEFT AC ON FIRST ATTEMPT. IV FLUIDS NOW INFUSING AT 70ML/HR. WILL CONTINUE TO MONITOR.
--- NOTE | 2019-04-20 05:20 | NUR ---
PATIENT RIPPED IV OUT. UNABLE TO START NEW IV.
--- NOTE | 2019-04-20 07:30 | NUR ---
VITALS WITHIN NORMAL RANGES. PO2 95% R/A. CONSTANTIN. A&O X3. HEART SOUNDS MURMUR. LUNG SOUNDS DIMINISHED IN LLL OTHERWISE CLEAR THROUGHOUT. BOWEL SOUNDS ACTIVE X4. ABDOMEN IS SOFT, NONTENDER, NONDISTENDED. 0/10 PAIN PER PT. SKIN TURGOR NONTENDED. SKIN PINK, WARM, DRY, INTACT. POSITIVE PERIPHERAL PULSES. PT IS PLEASANT AND COOPERATIVE. MARTHA GARCIA SPCC.
[2019-04-20 08:00] VITALS: BP 144/62
--- NOTE | 2019-04-20 08:35 | NUR ---
OT NOTE Pt was seen this A.M. 1:1 for 15 minute OT session. Upon arrival pt was supine in bed. Pt identified by name and and had no complaints at this time. Pt presented to therapy with IV to her LUE which remained in place throughout the entire session. Pt transferred supine to sit EOB with Daniel. Sit to stand completed from bed level with Daniel and use of w/w for UE support. Functional mobility was then completed into the bathroom with CGA and use of w/w, pt required modA for walker navigation and safety awareness. There she transferred on to standard commode with Daniel and off with modA. Clothing management completed with modA and toilet hygiene completed with maxA while seated. Pt then transferred back into bed sit to supine with Daniel. There she was left with call light in hand, tray table in place, and bed alarm activated for safety. Continue with rec D/C plan SNF. AUGUSTO Valderrama
--- NOTE | 2019-04-20 09:21 | NUR ---
PHYSICAL THERAPY Patient presented to therapy in supine with head of bed elevated and report of no pain. Bed alarm is on. Patient gives informed consent for treatment. Patient was identified by name and on wristband. Patient is on IV infusing at this time. Patient transfers supine to sitting at EOB with MIN A X 1. Patient performed sitting on EOB with SBA. Patient sit to stand from EOB with MIN A X 1. Patient ambulated with Wh Walker and MIN A X 1 for correcting direction manually and verbal cues for upright posture, not letting go of Walker handles and staying within SARATH of Wh Walker. Patient ambulated 40' x 1 with Wh Walker and MIN A X 1. Patient transferred back to supine in bed with MAX A X 2. Patient moved up to head of bed with MAX A X 2 with draw sheet. Patient was left in supine in bed with head of bed elevated, call light within reach, bed rails up and bed alarm activated. Patient was moderately confused this morning having great difficulty staying within SARATH of Walker, keeping hands on Walker, and difficulty maintaining correct direction with Walker. Patient was 1:1 with this TILE BURNER for 20 minutes total. TRA HERNANDEZ TILE BURNER
--- NOTE | 2019-04-20 10:49 | NUR ---
Patient will be able to go to [facility] 04/21/2019 if medically stable. SUNSHINE completed HENs. -SUNSHINE Araya
[2019-04-20 11:42] LABS: BASO % 0.5 % (0.0-1.0); EOS # 0.1 10*3/uL (0.0-0.4); EOS % 1.7 % (1.0-4.0); HEMATOCRIT 36.4 % (37.0-47.0); HEMOGLOBIN 11.3 g/dl (12.0-16.0); LYMPH # 1.3 10*3/uL (1.3-4.4); LYMPH % 20.2 % (27.0-41.0); MEAN CELL VOLUME 89.4 fl (81.0-99.0); MEAN CORPUSCULAR HGB 27.8 pg (27.0-31.0); MEAN PLATELET VOLUME 10.3 fl (9.6-12.3); MONO # 0.6 10*3/uL (0.1-1.0); MONO % 9.2 % (3.0-9.0); NEUT # 4.3 10*3/uL (2.3-7.9); NEUT % 67.1 % (47.0-73.0); PLATELET COUNT AUTOMATED 218 10*3/uL (130-400); RED BLOOD COUNT 4.07 10*6/uL (4.10-5.10); RED CELL DISTRI WIDTH 20.7 % (0-14.5); WHITE BLOOD COUNT 6.4 10*3/uL (4.8-10.8)
[2019-04-20 11:53] LABS: BUN 13 mg/dl (7-24); CHLORIDE 113 mmol/L (98-107); CREATININE 0.92 mg/dL (0.55-1.02); POTASSIUM 3.8 mmol/L (3.5-5.1); SODIUM 141 mmol/L (136-145)
[2019-04-20 12:05] VITALS: BP 136/72
--- NOTE | 2019-04-20 12:08 | NUR ---
PT ALERT AND ORIENTED. HAVING CONVERSATION WITH NEXT DOOR NEIGHBOR VISITING. MARTHA GARCIA SPNRCC.
--- NOTE | 2019-04-20 12:57 | NUR ---
CONTINUOUS DRIER OPERATOR spoke with patients nephdelfina Garner Emelina. CONTINUOUS DRIER OPERATOR gave a brief clinical update. CONTINUOUS DRIER OPERATOR explained patient was agreeable to [facility] and would possible discharged tomorrow if medically stable. Patients nephew is agreeable to this plan. -SUNSHINE Araya
--- NOTE | 2019-04-20 13:31 | NUR ---
PT WILL GO TO [facility] AFTER SHE HAS HAD A 3 NIGHT STAY. CAN GO TOMORROW. FAMILY AWARE. NURSING WILL NEED TO NOTIFY FAMILY TIME THAT PT IS DISCHARGED.
--- NOTE | 2019-04-20 14:47 | NUR ---
PHYSICAL THERAPY CO-SIGN I approve of the Physical Therapy notes written above. Ciara Duke PT
[2019-04-20 16:00] VITALS: BP 142/82
[2019-04-20 20:00] VITALS: BP 134/86
[2019-04-21] VITALS: BP 126/56
--- NOTE | 2019-04-21 00:05 | NUR ---
PATIENT MEDICATED WITH RESTORIL. WILL CHECK EFFECTIVENESS.
--- NOTE | 2019-04-21 04:00 | NUR ---
PATIENT SLEEPING, RESTORIL EFFECTIVE. RESPIRATIONS EASY, NON LABORED. NO SIGNS OF DISTRESS. BED IN LOWEST POSITION, BED ALARM ON, WILL CONTINUE TO MONITOR.
[2019-04-21 08:00] VITALS: BP 120/66
[2019-04-21 12:00] VITALS: BP 138/67
[2019-04-21 16:00] VITALS: BP 140/50
[2019-04-21 20:00] VITALS: BP 158/68; BP 171/91
--- NOTE | 2019-04-21 20:00 | NUR ---
IV started right wrist with #22 protective cath after 1 attempts. Site prepped with Chloroprep. Sterile dressing applied. Patient tolerated procedure well. JUSTYN DEE
--- NOTE | 2019-04-21 20:00 | NUR ---
PATIENT AWAKE, ALERT AND CONFUSED. PATIENT HAS NO COMPLAINTS AT THIS TIME. BED ALARM ON AND CALL LIGHT IN REACH. WILL MONITOR.
--- NOTE | 2019-04-21 21:45 | NUR ---
PATIENT C/O BACK PAIN FROM LAYING IN BED, NORCO ADMINISTERED PRESCRIBED. WILL MONITOR FOR EFFECTIVENESS.
--- NOTE | 2019-04-21 22:45 | NUR ---
PATIENT RESTING WITH EYES CLOSED. RESPIRATIONS EASY AND UNLABORED. BED ALARM ON AND CALL LIGHT WITHIN REACH. WILL MONITOR.
[2019-04-22] VITALS: BP 130/61
--- NOTE | 2019-04-22 | NUR ---
PATIENT RESTING WITH EYES CLOSED. RESPIRATIONS EASY AND UNLABORED. BED ALARM ON AND CALL LIGHT WITHIN REACH. WILL MONITOR.
--- NOTE | 2019-04-22 02:00 | NUR ---
PATIENT RESTING WITH EYES CLOSED. RESPIRATIONS EASY AND UNLABORED. PATIENT UP ONCE TO RESTROOM. BED ALARM ON AND CALL LIGHT WITHIN REACH. WILL MONITOR.
--- NOTE | 2019-04-22 03:44 | NUR ---
24 HR chart check completed.
--- NOTE | 2019-04-22 04:00 | NUR ---
PATIENT RESTING WITH EYES CLOSED. RESPIRATIONS EASY AND UNLABORED. BED ALARM ON AND CALL LIGHT WITHIN REACH.
[2019-04-22 08:00] VITALS: BP 140/59
--- NOTE | 2019-04-22 11:03 | NUR ---
Spoke with Dr. Bowen regarding consult for lung nodules. No new orders. Physician to follow up at bedside.
[2019-04-22 12:00] VITALS: BP 154/66
[2019-04-22 16:00] VITALS: BP 160/80
--- NOTE | 2019-04-22 19:04 | NUR ---
24 HR chart check completed.
[2019-04-22 20:00] VITALS: BP 144/70; BP 147/92
--- NOTE | 2019-04-22 20:00 | NUR ---
PATIENT AWAKE AND ALERT TO SELF. PLEASANTLY CONFUSED. PATIENTS ONLY COMPLAINT IS BACK PAIN FROM LAYING IN THE BED. BED ALARM ON AND CALL LIGHT IN REACH. WILL MONITOR.
--- NOTE | 2019-04-22 21:28 | NUR ---
PATIENT MEDICATED FOR C/O BACK PAIN FROM LAYING IN BED. NORCO ADMINISTERED PRESCRIBED. WILL MONITOR FOR EFFECTIVENESS.
--- NOTE | 2019-04-22 22:28 | NUR ---
PATIENT RESTING IN BED WATCHING TV. PATIENT STATES THAT HER BACK IS FEELING BETTER. WILL MONITOR FOR EFFECTIVENESS.
[2019-04-23] VITALS: BP 138/53
--- NOTE | 2019-04-23 | NUR ---
PATIENT RESTING WITH EYES CLOSED. RESPIRATIONS EASY AND UNLABORED. BED ALARM ON AND CALL LIGHT IN REACH. WILL MONITOR.
--- NOTE | 2019-04-23 02:08 | NUR ---
PATIENT REQUESTING PAIN MEDICATION FOR HER BACK TO HELP HER SLEEP. NORCO ADMINISTERED PRESCRIBED. WILL MONITOR FOR EFFECTIVENESS.
--- NOTE | 2019-04-23 03:08 | NUR ---
PATIENT RESTING WITH EYES CLOSED. RESPIRATIONS EASY AND UNLABORED. BED ALARM ON AND CALL LIGHT IN REACH. WILL MONITOR.
--- NOTE | 2019-04-23 04:00 | NUR ---
PATIENT RESTING WITH EYES CLOSED. RESPIRATIONS EASY AND UNLABORED. BED ALARM ON AND CALL LIGHT IN REACH. WILL MONITOR.
[2019-04-23 08:00] VITALS: BP 146/70
--- NOTE | 2019-04-23 08:40 | NUR ---
CATHODIC PROTECTION TECHNICIAN faxed updates to [facility]. -SUNSHINE Araya
--- NOTE | 2019-04-23 10:02 | NUR ---
OT NOTE Pt was seen this A.M. 1:1 for 19 minute OT session. Upon arrival pt was sitting upright in the recliner. Pt identified by name and and had no complaints at this time. Sit to stand completed from chair level with Daniel and use of w/w for UE support. Functional mobility was then completed to the bathroom with Daniel due to requiring assist for walker safety and walker navigation. There she stood sink side while washing her hands with Daniel for assist with correcting retrograde posture. Then challenged pt's static standing tolerance needed for increased I in self care tasks and functional transfers. Pt was able to tolerate aprox 4 minutes at a time before sitting due to fatigue. Pt was left sitting upright in the recliner with call light in hand, tray table in place, and body alarm activated for safety. Continue with rec D/C plan to SNF. WINTER Valderrama/Gomez
--- NOTE | 2019-04-23 10:18 | NUR ---
PHYSICAL THERAPY Patient presented to therapy in sitting in bedside chair with chair alarm attached. Patient has no complaints. Patient gives informed consent for treatment. Patient was identified by name and on wristband. Patient scooted forwards to edge of chair herself. Patient performed sit to stand from bedside chair with MIN A X 1. Patient required verbal cues for pushing off armrests of chair with hands. Patient ambulated with Wh Walker and CGA X 1 for 60' X 2 with no LOB, but she did require manual correction of direction of Wh Walker and verbal cues for wider SARATH. Patient performed transfer back to bedside chair with MIN A X 1 with verbal cues for putting hands back on armrests of chair. Patient was left in bedside chair with chair alarm tested and attached to patient, LEs elevated, and call light within reach. Patient's tray table left in front of patient. Patient was 1:1 with this PLANT ACCOUNTANT for 17 minutes total. IN: 9:29 AM / OUT: 9:46 AM TRA HERNANDEZ PLANT ACCOUNTANT
--- NOTE | 2019-04-23 10:33 | NUR ---
PATIENT AWAKE, ALERT, NO SIGNS OR SYMPTOMS OF DISTRESS AT THIS TIME. PLEASANT. LUNGS DIMINISHED T/O, ROOM AIR. NO EDEMA. DENIES ANY PAIN. ABD SOFT & NONTENDER. NO NEEDS VOICED AT THIS TIME, CALL LIGHT WITHIN REACH.
[2019-04-23 12:00] VITALS: BP 116/62
--- NOTE | 2019-04-23 12:25 | NUR ---
PT HAS BEEN ACCEPTED TO [facility] AND CAN GO WHEN MEDICALLY STABLE.
--- NOTE | 2019-04-23 14:14 | NUR ---
PHYSICAL THERAPY Patient was approached for afternoon therapy session and she declined saying she was too tired from the therapy session this AM. Will check back with patient tommorrow. TRA HERNANDEZ PLASTICS FABRICATOR AND ASSEMBLER
[2019-04-23 16:00] VITALS: BP 151/75
--- NOTE | 2019-04-23 19:31 | NUR ---
24 HR chart check completed.
[2019-04-23 20:00] VITALS: BP 149/70
--- NOTE | 2019-04-23 20:00 | NUR ---
PATIENT SITTING IN BED WATCHING TV AT THIS TIME. PATIENT HAS NO COMPLAINTS. SEE SHIFT ASSESSMENT. BED ALARM ON AND CALL LIGHT IN REACH. WILL MONITOR.
--- NOTE | 2019-04-23 21:11 | NUR ---
PATIENT REQUESTING PAIN MEDICATION FOR BACK PAIN. NORCO ADMINISTERED PRESCRIBED. WILL MONITOR FOR EFFECTIVENESS.
--- NOTE | 2019-04-23 22:11 | NUR ---
PATIENT WATCHING TV, STATES THAT PAIN MEDICATION HELPED HER BACK. WILL MONITOR.
[2019-04-24] VITALS: BP 142/79
--- NOTE | 2019-04-24 | NUR ---
PATIENT RESTING WITH EYES CLOSED. RESPIRATIONS EASY AND UNLABORED. BED ALARM ON AND CALL LIGHT IN REACH. WILL MONITOR.
--- NOTE | 2019-04-24 01:50 | NUR ---
PATIENT RESQUESTING PAIN MEDICATION FOR BACK PAIN. NORCO ADMINISTERED PRESCRIBED. WILL MONITOR FOR EFFECTIVENESS. WILL MONITOR.
--- NOTE | 2019-04-24 02:50 | NUR ---
PATIENT RESTING WITH EYES CLOSED. RESPIRATIONS EASY AND UNLABORED. BED ALARM ON AND CALL LIGHT IN REACH. WILL MONITOR.
--- NOTE | 2019-04-24 04:00 | NUR ---
PATIENT RESTING WITH EYES CLOSED. RESPIRATIONS EASY AND UNLABORED. BED ALARM ON AND CALL LIGHT IN REACH. WILL MONITOR.
--- NOTE | 2019-04-24 07:57 | NUR ---
CLAY HOUSE WORKER faxed updates to [facility]. -SUNSHINE Araya
[2019-04-24 08:00] VITALS: BP 153/81
[2019-04-24 12:00] VITALS: BP 150/65
--- NOTE | 2019-04-24 13:58 | NUR ---
PER DR STAHL NOTE WILL HOLD DISCHARGE FOR TODAY. CONTINUE IV ROCEPHIN. LABS IN AM. WILL CONTINUE TO FOLLOW.
--- NOTE | 2019-04-24 14:00 | NUR ---
PHYSICAL THERAPY Patient seen this pm 1:1 for therapy visit and was standing in her bathroom with attendant following patient care upon therapist arrival. Patient identified by name / and ambulates with use of wh walker, MIN/CGA, 40'x 1, demonstrating unsteady gait pattern with R side gait deviation. Patient returned to supine in bed Mod A x 1 and remained with call light, tray table, telephone and bed alarm for safety. Will continue per POC as tolerated, total treatment time 16 minutes. Stevenson Frausto, GANG SAWYER
--- NOTE | 2019-04-24 14:29 | NUR ---
OT NOTE Pt was seen this P.M. 1:1 for 15 minute OT session. Upon arrival pt was sitting on the standard commode. Pt identified by name and and had no complaints at this time. Pt transferred sit to stand from commode level with Daniel and use of w/w for UE support. Clothing management completed with modA and toilet hygiene completed with Daniel while standing. She then stood sink side while washing her hands with Daniel for assist with sequencing. Functional mobility then completed around the room and back to the EOB with Daniel for assist with walker navigation. Pt then transferred sit to supine with Daniel for assist with BLE. There she was left with call light in hand, tray table in place, and bed alarm activated for safety. Continue with rec D/C plan to SNF. AUGUSTO Valderrama
[2019-04-24 16:00] VITALS: BP 133/61
--- NOTE | 2019-04-24 19:44 | NUR ---
Hep Lock discontinued. Site asymptomatic. Pressure applied. Sterile dressing applied. CHRISTOPHER ARGUELLES
--- NOTE | 2019-04-24 19:45 | NUR ---
[facility] here and patient placed on cart and packet given to ambulance service and patient discharged back to [facility] with belongings.
--- NOTE | 2019-04-25 07:39 | NUR ---
PHYSICAL THERAPY CO-SIGN I approve of the Physical Therapy notes written above. Ciara Duke PT
--- NOTE | 2019-04-25 15:26 | NUR ---
OCCUPATIONAL THERAPY CO-SIGN I approve of the Occupational Therapy notes written above. DAMIR ESTRADA OTR/Gomez
== END 2019-04-24 19:45 | disposition other institution (70) | DRG 689 ==
LOC: ED 16:55 → EDHOLD 18:14 → 5E 18:14
PROVIDERS: Family Medicine; Hospitalist; Internal Medicine; ADMIT Internal Medicine Nephrology
DX: N30.00 Acute cystitis without hematuria (principal); I50.43 Acute on chronic combined systolic (congestive) and diastolic (congestive) heart failure; E44.0 Moderate protein-calorie malnutrition; I48.21 Permanent atrial fibrillation; J98.11 Atelectasis; E78.5 Hyperlipidemia, unspecified; E87.8 Other disorders of electrolyte and fluid balance, not elsewhere classified; I11.0 Hypertensive heart disease with heart failure; R59.0 Localized enlarged lymph nodes; Z66 Do not resuscitate; Z51.5 Encounter for palliative care; R91.1 Solitary pulmonary nodule; D64.9 Anemia, unspecified; F03.90 Unspecified dementia, unspecified severity, without behavioral disturbance, psychotic disturbance, mood disturbance, and anxiety; B96.20 Unspecified Escherichia coli [E. coli] as the cause of diseases classified elsewhere; I08.0 Rheumatic disorders of both mitral and aortic valves; R00.1 Bradycardia, unspecified; Z88.2 Allergy status to sulfonamides; Z86.73 Personal history of transient ischemic attack (TIA), and cerebral infarction without residual deficits; Z98.41 Cataract extraction status, right eye; Z82.49 Family history of ischemic heart disease and other diseases of the circulatory system; Z84.89 Family history of other specified conditions; Z68.21 Body mass index [BMI] 21.0-21.9, adult; Z79.899 Other long term (current) drug therapy

== ENCOUNTER 2019-04-29 14:25 | Emergency (ER) | payer MEDICARE ==
[~2019-04-29] VITALS: Ht 152.4 cm; Wt 60.8 kg
[~2019-04-29 14:25] MED LIST changes: +POTASSIUM CHLO20 ME3 PO
[2019-04-29 14:26] VITALS: BP 138/60
[2019-04-29] MEDS ORDERED: NORCO 5-325 TA1 EACH PO (15:22)
== END 2019-04-29 16:02 | disposition other institution (70) ==
LOC: ED 14:25
DX: S42.031A Displaced fracture of lateral end of right clavicle, initial encounter for closed fracture (principal); I10 Essential (primary) hypertension; E78.00 Pure hypercholesterolemia, unspecified; I48.91 Unspecified atrial fibrillation; Z86.73 Personal history of transient ischemic attack (TIA), and cerebral infarction without residual deficits; Z88.2 Allergy status to sulfonamides; Z79.899 Other long term (current) drug therapy; W17.89XA Other fall from one level to another, initial encounter; Y93.89 Activity, other specified; Y92.89 Other specified places as the place of occurrence of the external cause; Y99.8 Other external cause status